=== PATIENT | female | born 1985 | race Caucasian/White ===

== ENCOUNTER 2017-11-01 16:12 | Inpatient (IN) | END 2017-11-05 14:57 | disposition home or self-care (01) | DRG 775 ==

== ENCOUNTER 2018-11-30 17:21 | Outpatient (CLI) | payer OTHER ==
--- NOTE | 2018-11-30 18:03 | PN ---
Triage Information Date/Time Reason for visit: Abd/pelvic pain Weeks of Gestation 33-year-old 3 para 2 at 34 weeks of gestation with estimated date of delivery January 07, 2019 She presents with chief complaint of pelvic pressure Patient reports positive movement, denies uterine contractions, denies vaginal bleeding or leaking fluid /Para 3 para 2 Diabetes: none Hypertention: none Objective Heart Rate: 140's Heart Rate Comments heart rate tracing category 1 Contractions: None Results/Medications Imaging Results PROCEDURE: Biophysical profile. CLINICAL INDICATION: Pelvic pain. TECHNIQUE: Multiple sonographic images of the pelvis were obtained with transabdominal technique. Endovaginal evaluation of the cervix was also performed. COMPARISON: No prior studies are available for comparison. FINDINGS: There is a single living intrauterine gestation with the fetus in a vertex position. The placenta is anterior in location, grade 1 to 2. heart tones of 141 beats per minute are identified. There is normal amniotic fluid volume with an ELLIE of 13.4 cm. The cervix is closed measuring 4.2 cm. breathing movements = 2 Gross body movements = 2 tone = 2 Qualitative AFV = 2 IMPRESSION: Biophysical profile 8 out of 8. .Neel Gongora MD, MD Date Time Electronically viewed and signed by .Neel Gongora MD, on 11/30/2018 18:18 .T/ CC: ILSA SUTHERLAND [id number] Disposition: Discharge Assessment/Plan Patient instructed to increase p.o. hydration Labor precautions were given kick count instructions were given Patient instructed to follow-up with her own [employer]IV[employer] CLERK in 1 to 2 days RAQUEL NEWELL MD November 30, 2018 18:02
--- NOTE | 2018-11-30 18:56 | TRIAGE ---
OB Triage Datetime Report Generated by CPN: 11/30/2018 18:55 Datetime: 11/30/2018 18:53 Stage of : OB Triage Maternal Assessment Level of Consciousness: Fully Conscious DTR's/Clonus: DTRs 1+ Headache: Denies Nausea/Vomiting: Denies RUQ Epigastric Pain: Denies Labor Evaluation Frequency: NONE Monitor Mode: External Resting Tone [place]: Relaxed Heart Rate FHR Baseline Rate: 145 Monitor Mode: External US Variability: Moderate 6-25 bpm Accelerations: 15X15 Decelerations: None Category: Category I Pain Assessment Pain Scale: 4 Pain Presence: Constant Pain Type: Ache Pain Location: Perineum Pain Goal: 3 Vaginal Exam Membrane Status: Intact Datetime: 11/30/2018 18:15 Maternal Assessment Level of Consciousness: Fully Conscious DTR's/Clonus: DTRs 1+ Headache: Denies Blurred Vision: No Nausea/Vomiting: Denies RUQ Epigastric Pain: Denies Facial Edema: None Labor Evaluation Frequency: NONE Monitor Mode: External Resting Tone [place]: Relaxed Heart Rate FHR Baseline Rate: 145 Monitor Mode: External US Variability: Moderate 6-25 bpm Accelerations: 15X15 Decelerations: None Category: Category I Pain Assessment Pain Scale: 4 Pain Presence: Constant Pain Type: Ache Pain Location: Perineum Pain Goal: 3 Vaginal Exam Membrane Status: Intact Datetime: 11/30/2018 17:24 Assessment Type: Triage Maternal Assessment Level of Consciousness: Fully Conscious DTR's/Clonus: DTRs 2+; No Clonus Headache: Denies Blurred Vision: No Respiratory Effort: Unlabored; Regular Rhythm; Equal Expansion Breath Sounds, Left: Clear and Equal Breath Sounds, Right: Clear and Equal Nausea/Vomiting: Denies RUQ Epigastric Pain: Denies Lower Extremities Edema: None Degree: None Upper Extremities Edema: None Degree: None Facial Edema: None Fall Risk Assessment History of Falling: (0) No Secondary Diagnosis: (0) No Ambulatory Aid: (0) Bedrest/Nurse Assist IV Therapy: (0) No Gait: (0) Normal/Bedrest/Immobile Mental Status: (0) Oriented to Own Ability Fall Score: 0 Fall Risk Score Definition: No Risk: No action required Datetime: 11/30/2018 17:20 Time of Arrival: 11/30/2018 13:20 EGA: 34.0 Arrived By: Ambulatory Chief Complaint: PT CAME IN C/O PELVIC PAIN AND VAGINAL PRESSURE SINCE 1 WEEK AGO Movement: Present Contractions: Denies/Absent Rupture of Membranes: Denies Vaginal Discharge: Denies Recent Sexual Intercouse: Denies Abdominal Trauma: Not Applicable Additional Patient Complaints: NONE Time Provider Notified: 11/30/2018 17:24 Provider Notified: HANNAH Initial Plan: MONITOR, NST, BPP, CX LENGHT
== END 2018-11-30 18:50 | disposition home or self-care (01) ==
LOC: OBT 17:21 → L-D 17:23 → OBT 18:50
PROVIDERS: ATTEND Obstetrics & Gynecology
DX: O26.893 Other specified pregnancy related conditions, third trimester (principal); R10.2 Pelvic and perineal pain; Z3A.34 34 weeks gestation of pregnancy
CPT/HCPCS: 76817; 76818; Z7500; G0463

== ENCOUNTER 2018-12-29 15:02 | Outpatient (CLI) | payer OTHER ==
[~2018-12-29] VITALS: Ht 154.9 cm; Wt 79.1 kg
[2018-12-29 16:25] VITALS: Ht 154.9 cm; Wt 79.1 kg
[2018-12-29 16:26] VITALS: BP 93/53; PULSE 82; RESP 18
[2018-12-29] MEDS ORDERED: PNV11TAB PO (16:28)
--- NOTE | 2018-12-29 17:26 | PN ---
Triage Information Date/Time Reason for visit: GDM for NST BPP Weeks of Gestation 37+ /Para n/a Diabetes: none, gestational Hypertention: none Objective Vital Signs Date Temp Pulse Resp B/P (MAP) Pulse Ox O2 O2 Flow FiO2 Time Delivery Rate 12/29/18 98.0 82 18 93/53 (66) 16:26 Heart Rate: 140's Contractions: None Results/Medications Results 24 hrs Laboratory Tests Test 12/29/18 17:12 Bedside Glucose 88 Disposition: Discharge Assessment/Plan BP 04/29 Precautions discussed Questions answered Follow up with provider SAMUEL ROSE M.D. Dec 29, 2018 17:26
--- NOTE | 2018-12-29 17:36 | TRIAGE ---
OB Triage Datetime Report Generated by CPN: 12/29/2018 17:36 Datetime: 12/29/2018 17:15 Stage of : OB Triage Datetime: 12/29/2018 17:13 Stage of : OB Triage Datetime: 12/29/2018 17:10 Bedside Blood Glucose: 88 Datetime: 12/29/2018 16:21 Stage of : OB Triage Assessment Type: Triage Maternal Assessment Level of Consciousness: Keenly Alert, Responsive DTR's/Clonus: DTRs 2+; No Clonus Headache: Denies Blurred Vision: No Respiratory Effort: Unlabored; Regular Rhythm; Equal Expansion Breath Sounds, Left: Clear and Equal Breath Sounds, Right: Clear and Equal Nausea/Vomiting: Denies RUQ Epigastric Pain: Denies Facial Edema: None Temperature Route: Axillary Fall Risk Assessment History of Falling: (0) No Secondary Diagnosis: (0) No Ambulatory Aid: (0) Bedrest/Nurse Assist IV Therapy: (0) No Gait: (0) Normal/Bedrest/Immobile Mental Status: (0) Oriented to Own Ability Fall Score: 0 Fall Risk Score Definition: No Risk: No action required Labor Evaluation Frequency: 0 Monitor Mode: External Pattern: Normal: <= 5 Contractions in 10 Minutes Resting Tone [place]: Relaxed Heart Rate FHR Baseline Rate: 140 Monitor Mode: External US Variability: Moderate 6-25 bpm Accelerations: 10X10 Decelerations: None Category: Category I Pain Assessment Pain Scale: 0 Pain Presence: None/Denies Pain Type: N/A Pain Goal: 3 Pain Relief Measures: Comfort Measures Datetime: 12/29/2018 15:55 Time of Arrival: 12/29/2018 14:53 EGA: 37.2 Arrived By: Ambulatory Arrived From: Office Chief Complaint: REFERRED FROM OFFICE FOR GDM, BPP, EFW, DENIES LEAKING, BLEEDING, OR UC'S Movement: Present Contractions: Denies/Absent Rupture of Membranes: Denies Vaginal Discharge: Denies Recent Sexual Intercouse: Denies Abdominal Trauma: Not Applicable Time Provider Notified: 12/29/2018 17:13 Provider Notified: hadadian Initial Plan: MONITOR, BPP, EFW Datetime: 11/30/2018 17:24 Fall Score: 0 Fall Risk Score Definition: No Risk: No action required Datetime: 11/30/2018 17:20 EGA: 33.1
== END 2018-12-29 17:26 | disposition home or self-care (01) ==
LOC: OBT 15:02 → L-D 15:03 → OBT 17:26
PROVIDERS: ATTEND Obstetrics & Gynecology
DX: O24.419 Gestational diabetes mellitus in pregnancy, unspecified control (principal); O36.8330 Maternal care for abnormalities of the fetal heart rate or rhythm, third trimester, not applicable or unspecified; Z3A.37 37 weeks gestation of pregnancy
CPT/HCPCS: 76815; 76818; 82962; Z7500; G0463

== ENCOUNTER 2019-01-01 11:31 | Outpatient (CLI) | payer OTHER ==
[~2019-01-01] VITALS: Ht 154.9 cm; Wt 80.1 kg
[~2019-01-01 11:31] MED LIST: PNV11TAB PO
[2019-01-01 11:45] VITALS: Ht 154.9 cm; Wt 80.1 kg
[2019-01-01 11:46] VITALS: BP 109/67; PULSE 88; RESP 18
--- NOTE | 2019-01-01 17:21 | PN ---
Triage Information Date/Time Reason for visit: biwkly antepartum test for GDM Weeks of Gestation 37w5d /Para Diabetes: gestational Diabetes management: diet controlled Hypertention: none Objective Vital Signs Date Temp Pulse Resp B/P (MAP) Pulse Ox O2 O2 Flow FiO2 Time Delivery Rate 01/01/19 98.1 88 18 109/67 11:46 (81) Heart Rate: 140's Contractions: None Exam random B.S 123 ( ihr ago had meal)) Results/Medications Results 24 hrs Laboratory Tests Test 01/01/19 11:39 Bedside Glucose 123 Imaging Results BPP 8/8 ELLIE 8.4 Disposition: Discharge Assessment/Plan A IUP 37w5d borderline oligohydramnios P RTH in 3days for biwkly antepartum test NADIA PETERSON MD Jan 01, 2019 17:21
== END 2019-01-01 14:20 | disposition home or self-care (01) ==
LOC: OBT 11:31 → L-D 11:32 → OBT 14:20
PROVIDERS: ATTEND Obstetrics & Gynecology
DX: O24.419 Gestational diabetes mellitus in pregnancy, unspecified control (principal); O41.03X0 Oligohydramnios, third trimester, not applicable or unspecified; Z3A.37 37 weeks gestation of pregnancy
CPT/HCPCS: 76818; 82962; Z7500; G0463

== ENCOUNTER 2019-01-04 16:25 | Inpatient (IN) | payer OTHER ==
[~2019-01-04] VITALS: Ht 154.9 cm; Wt 79.4 kg
[2019-01-04 16:37] VITALS: Ht 154.9 cm; Wt 79.4 kg
--- NOTE | 2019-01-04 17:17 | HP ---
Date/Time of Note Date/Time of Note DATE: 01/04/19 TIME: 17:13 OB - History Hx of Present Free Text/Dictation 33-year-old 3 para 2 at 38 weeks and 1 day gestation with estimated date of delivery January 17, 2019 Patient is GDM A1 and presents for NST and BPP Patient reports positive movement, denies vaginal bleeding and leaking fluid, denies uterine contractions GBS status is negative Estimated Due Date: Jan 17, 2019 : 3 Para: 2 Care: Good Care Obstetrical Complications: Gestational Diabetes (GDM A1) Medical Complications: None Past Family/Social History * Past Medical, Surgical, Family and Obstetric Histories reviewed from chart. OB Admission Exam Physical Exam HEENT: WNL Heart: Rhythm Normal Lungs: Clear, Equal Abdomen: WNL Extremities: Normal Reflexes: Normal Cervical Dilatation: None Membranes: Intact Heart Rate: 140's Accelerations: Accelerations Present Decelerations: No Decelerations Varibility: Moderate Contractions on Admission: None Last 72 hours Lab Results PROCEDURE: US Obstetrical , limited CLINICAL INDICATION: Biophysical profile for well being, gestational diabetes. TECHNIQUE: Multiple real-time images were acquired of the patient's maternal abdomen utilizing a curved array transducer. COMPARISON: 01/01/2019 FINDINGS: There is a single live intrauterine fetus in a cephalic presentation. The placenta is implanted anteriorly and is grade II. The amniotic fluid index measures 9.4 cm. The heart rate is 143 beats per minute. Biophysical profile: Tone: 2 breathin Gross body movement: 2 Amniotic fluid: 2 Biophysical profile score: 8/8 IMPRESSION: 1. Single live intrauterine fetus, cephalic presentation, unchanged. The heart rate is 143 bpm. 2. Anterior placenta, grade 2. 3. Amniotic fluid index 9.4 cm. 4. Biophysical profile score: 8/8, unchanged. Physician Ferny Date Time Electronically viewed and signed by Physician Ferny on 01/04/2019 17:20 RH/ CC: RAQUEL NEWELL MD [phone] OB Assessment/Plan Reason for admission: other ( heart rate tracing category 2) Other plan: Admit to antepartum Continuous monitoring of heart rate tracing Copies To: CC: ILSA SUTHERLAND ; RAQUEL NEWELL MD Jan 04, 2019 17:17
[2019-01-04] MEDS: LACTATED RINGER'S 1,000 ML IV SCH ×2 (18:54→23:43)
[2019-01-04] MEDS ORDERED: ACETAMINOPHEN 325 MG TAB PO PRN (23:30)
[2019-01-04] MEDS ORDERED: DIPHENHYDRAMINE 25 MG CAP PO SCH (23:30)
--- NOTE | 2019-01-05 09:36 | PREAC ---
Date/Time of Note Date/Time of Note DATE: 01/05/19 TIME: 09:35 Anesthesia Eval and Record Evaluation Time Pre-Procedure Interview DATE: 01/05/19 TIME: 09:35 Age 33 Sex female NPO: 8 hrs Preoperative diagnosis intrauterine Planned procedure labor epidural Past Medical History Past Medical History: Includes : : (3), Para: (2), Gestational diabetes Surgery & Anesthesia Issues No known issue Meds Anticoagulation: No Beta Speedy within 24 hr: No Reason Beta Speedy not given: Pt. not on B-Speedy Reported Medications [id number] ( 19) 1 Each Tablet, 1 TAB PO DAILY, TAB 12/29/18 Current Medications Lactated Ringer's 1,000 ml @ 125 mls/hr Q8H IV Last administered on 01/04/19at 23:43; Admin Dose 125 MLS/HR; Start 01/04/19 at 18:38 Acetaminophen (Tylenol Tab) 650 mg Q6H PRN PO MILD PAIN(1-3)OR ELEVATED TEMP; Start 01/04/19 at 23:30 Diphenhydramine HCl (Benadryl) 25 mg HS PO Last administered on 01/04/19at 23:43; Admin Dose 25 MG; Start 01/04/19 at 23:30 Meds reviewed: Yes Allergies Coded Allergies: No Known Allergy (Unverified , 01/04/19) Allergies Reviewed: Yes Labs/Studies Labs Reviewed: Reviewed by anesthesiologist Result Diagram: 01/04/19 1830 01/04/19 1830 Laboratory Tests 01/04/19 18:30 Blood Bank Test 01/04/19 18:30 Blood Type A POSITIVE Rh Immune Globulin Candidate NO test: N/A Pre-procedure Exam Airway: Adequate mouth opening, Adequate thyromental dist Mallampati: Mallampati II Teeth: Normal Lung: Normal Heart: Normal ASA Physical Status ASA physical status: 2 Emergency: None Planned Anesthetic Neuraxial: Epidural Planned Pain Management Epidural Pre-operative Attestations Prior to commencing anesthesia and surgery, the patient was re-evaluated, there was verification of: *The patient's identity *The results of appropriate recent lab work and preoperative vital signs *The above evaluation not changing prior to induction *Anesthetic plan, risk benefits, alternative and complications discussed with patient/family; questions answered; patient/family understands, accepts and wishes to proceed. TIKI MENDEZ MD Jan 05, 2019 09:36
[2019-01-05] MEDS ORDERED: LIDOCAINE 1% (MPF) 30 ML INJ INJ PRN (10:00)
[2019-01-05] MEDS ORDERED: METHYLERGONOVINE 0.2 MG INJ IM PRN (10:00)
[2019-01-05] MEDS ORDERED: OXYTOCIN 30 UNITS/LR 500 ML IV SCH ×3 (10:00)
[2019-01-05] MEDS ORDERED: BUTORPHANOL 2 MG INJ IV PRN (10:00)
[2019-01-05] MEDS ORDERED: CARBOPROST 250 MCG INJ IM PRN (10:00)
[2019-01-05] MEDS ORDERED: OXYTOCIN 30 UNITS/LR 500 ML IV PRN (10:00)
[2019-01-05] MEDS ORDERED: MISOPROSTOL 200 MCG TAB PR PRN (10:00)
[2019-01-05] MEDS ORDERED: IBUPROFEN 600 MG TAB PO PRN (10:00)
[2019-01-05 13:28] VITALS: BP 105/63; PULSE 65; RESP 18
[2019-01-05] MEDS: LACTATED RINGER'S 1,000 ML IV SCH ×2 (16:02→21:40)
[2019-01-05] MEDS ORDERED: LACTATED RINGER'S 1,000 ML IV PRN (20:35)
[2019-01-05] MEDS ORDERED: DIPHENHYDRAMINE 25 MG CAP PO SCH (21:00)
[2019-01-05] MEDS ORDERED: FENTAnyl 2MCG/ML-ROPIV 0.2% 100 ML ONE (21:24)
[2019-01-05] MEDS ORDERED: FENTAnyl 2MCG/ML-ROPIV 0.2% 100 ML BAG EPI SCH (21:30)
[2019-01-05] MEDS ORDERED: DIPHENHYDRAMINE 50 MG INJ IV PRN (21:30)
[2019-01-05] MEDS ORDERED: NALOXONE (0.4 MG/ML) INJ IV PRN (21:30)
[2019-01-05] MEDS ORDERED: ONDANSETRON 4 MG INJ IV PRN (21:30)
--- NOTE | 2019-01-05 22:18 | PAC ---
Date/Time of Note Date/Time of Note DATE: 01/05/19 TIME: 22:18 Post-Anesthesia Notes Post-Anesthesia Note Last documented vital signs Vital Signs Date Temp Pulse Resp B/P (MAP) Pulse Ox O2 O2 Flow FiO2 Time Delivery Rate 01/05/19 97.4 65 18 105/63 13:28 (77) Activity: WNL Respiratory function: WNL Cardiovascular function: WNL Mental status: Baseline Pain reasonably controlled: Yes Hydration appropriate: Yes Nausea/Vomiting absent: Yes Comments BP: 112/62 HR: 72 RR: 15 SaO2: 100% T: 98 TIKI MENDEZ MD Jan 05, 2019 22:18
--- NOTE | 2019-01-06 02:19 | LDN ---
Date/Time of Note Date/Time of Note DATE: 01/06/19 TIME: 02:15 Delivery Summary 33 years old -0-0-2 with A1 gestational diabetes and single intrauterine at 38 weeks and 3 days with a LINA of 01/17/2019 delivered a viable female over intact perineum. Nose and mouth suctioned. Rest of body delivered. Cord clamp and caught after stopping pulsation. Baby given to the nurse. Placenta delivered intact and spontaneously, there was some clot behind placenta. Patient tolerated procedure well. Time of delivery 01:51 Weight 2975 g - 6 pound 9 ounces 8 at 1 minutes and 9 at 5 minutes EBL 250 Weeks of Gestation 38 weeks and 3 days Placenta Delivered: Spontaneously Meconium: none Episiotomy: No Estimated blood loss: 250 Sponge & Needle done & correct: Yes All needle counts correct: Yes Any foreign bodies felt in the: No Infant Delivery Information Sex Sex: female Apgars 1 Minute: 8 5 Minute: 9 10 Minute: 1 Suctioning Nose & mouth suctioned at ayde: Yes Umbilical Cord Umbilical cord with: 3 Vessels Cord presentations: no nuchal cord Cord Blood was obtained: Yes Mother & Baby Disposition Disposition Mom & Baby to Maternity; Good: Yes ILSA SUTHERLAND Jan 06, 2019 02:18
[2019-01-06 04:15] VITALS: BP 105/60; PULSE 79; RESP 19
[2019-01-06] MEDS: LACTATED RINGER'S 1,000 ML IV* SCH ×2 (04:19→06:06)
[2019-01-06] MEDS ORDERED: DEXTROSE 5%-LR 1,000 ML IV SCH (04:19)
[2019-01-06] MEDS ORDERED: DIPHENHYDRAMINE 50 MG INJ IV PRN (04:30)
[2019-01-06] MEDS ORDERED: MISOPROSTOL 200 MCG TAB PR PRN (04:30)
[2019-01-06] MEDS ORDERED: CARBOPROST 250 MCG INJ IM PRN (04:30)
[2019-01-06] MEDS ORDERED: DIBUCAINE 1% 30 GM OINT TOP PRN (04:30)
[2019-01-06] MEDS ORDERED: SENNA/DOCUSATE NA (8.6MG/50MG) TAB PO PRN (04:30)
[2019-01-06] MEDS ORDERED: OXYTOCIN 30 UNITS/LR 500 ML IV PRN (04:30)
[2019-01-06] MEDS ORDERED: BENZOCAINE 20% 56 ML SPRAY TOP PRN (04:30)
[2019-01-06] MEDS ORDERED: ONDANSETRON 4 MG INJ IV PRN (04:30)
[2019-01-06] MEDS ORDERED: LANOLIN HPA 1 PKT TOP PRN (04:30)
[2019-01-06] MEDS ORDERED: METHYLERGONOVINE 0.2 MG INJ IM PRN (04:30)
[2019-01-06] MEDS ORDERED: WITCH HAZEL/GLYCERIN PAD PR PRN (04:30)
[2019-01-06] MEDS ORDERED: ZOLPIDEM 5 MG TAB PO PRN (04:30)
[2019-01-06] MEDS ORDERED: ACETAMINOPHEN 325 MG TAB PO PRN (04:30)
[2019-01-06] MEDS ORDERED: OXYCODONE/ASPIRIN (4.88/325) TAB PO PRN (04:30)
[2019-01-06] MEDS ORDERED: IBUPROFEN 600 MG TAB ONE (05:54)
[2019-01-06] MEDS: IBUPROFEN 600 MG TAB PO SCH ×3 (06:05→17:53)
[2019-01-06 07:40] VITALS: BP 92/53; PULSE 74; RESP 18
[2019-01-06 12:05] VITALS: BP 100/59; PULSE 62; RESP 16
[2019-01-06 15:35] VITALS: BP 100/51; PULSE 63; RESP 20
--- NOTE | 2019-01-06 15:47 | PN ---
Date/Time of Note Date/Time of Note DATE: 01/06/19 TIME: 15:45 OB Subjective Subjective Subjective PPD# 1 Patient is doing well. She denies nausea, vomiting, shortness of breath, chest pain, headache. She has been ambulating without difficulty, tolerating regular diet. Pain is well controlled on current medications OB Objective Objective Objective VS - Last 72 Hours, by Label Date Temp Pulse Resp B/P (MAP) Pulse Ox O2 O2 Flow FiO2 Time Delivery Rate 01/06/19 98.2 63 20 100/51 Room Air 15:35 (67) 01/06/19 97.7 62 16 100/59 Room Air 12:05 (73) 01/06/19 98.2 74 18 92/53 (66) Room Air 07:40 01/06/19 98.0 79 19 105/60 Room Air 04:15 (75) 01/05/19 97.4 65 18 105/63 13:28 (77) General: AAO X 3, comfortable, NAD, appropriate mood and affect. ABD: +BS. Soft, non-tender. Uterus 2 cm below umbilicus Flank: No CVA tenderness (B/L) LE: Mild edema. No clubbing, cyanosis, thigh or calf tenderness (B/L). Homans 'sign is negative OB Assessment/Plan Other plan: 33-year-old -0-0-3 with the A1 gestational diabetes s/p normal vaginal delivery at 38 weeks and 3 days. PPD#1 - AF, VSS - Baby is doing well, at bed side. She is bonding well - Contraception methods with R/B/A/FR discussed - Continue care - Discharge home tomorrow - Rx and instruction given - Follow up in 2 and 6 weeks at clinic 2. A1 gestational diabetes: Diet and exercise discussed. 75 g 2-hour glucose tolerance test at 6-12 weeks after delivery discussed with patient. She expressed understanding. ILSA SUTHERLAND Jan 06, 2019 15:47
--- NOTE | 2019-01-06 15:48 | DS ---
Date/Time of Note Date/Time of Note DATE: 01/06/19 TIME: 15:47 Obstetrical Discharge Record Final Diagnosis Final Diagnosis: Term delivered Other Final Diagnosis 33-year-old -0-0-3 with the A1 gestational diabetes s/p normal vaginal delivery at 38 weeks and 3 days. PPD#1. course was unremarkable. She is ambulating and tolerating regular diet. She is voiding without difficulty. Pain is controlled on current medication. - AF, VSS - Baby is doing well, at bed side. She is bonding well - Contraception methods with R/B/A/FR discussed - Continue care - Discharge home tomorrow - Rx and instruction given - Follow up in 2 and 6 weeks at clinic 2. A1 gestational diabetes: Diet and exercise discussed. 75 g 2-hour glucose tolerance test at 6-12 weeks after delivery discussed with patient. She expressed understanding. Vaginal Delivery Obstetrical Delivery: Spontaneous Condition on Discharge Physical Assessment Last Vitals: Vital Signs Date Temp Pulse Resp B/P (MAP) Pulse Ox O2 O2 Flow FiO2 Time Delivery Rate 01/06/19 98.2 63 20 100/51 Room Air 15:35 (67) Voiding: Yes Bowel Movement: Yes Breast: Soft, non-tender Fundus: Firm Calf Tenderness: No Patient Condition: Stable ILSA SUTHERLAND Jan 06, 2019 15:48
[2019-01-06 19:50] VITALS: BP 96/46; PULSE 60; RESP 18
[2019-01-07] MEDS: IBUPROFEN 600 MG TAB PO SCH ×3 (00:34→12:47)
[2019-01-07 04:00] VITALS: BP 94/51; PULSE 65; RESP 18
[2019-01-07 08:42] VITALS: BP 114/72; PULSE 62; RESP 14
[2019-01-08] MEDS ORDERED: DIPHTH/TET/ACEL PERTUSS (ADULT) 0.5 ML VIAL IM* ONE (09:00)
[2019-01-08] MEDS ORDERED: MEASLES,MUMPS,RUBELLA VACCINE INJ SC* ONE (09:00)
--- NOTE | 2019-01-08 15:19 | DELSUM ---
Delivery Summary A-C Datetime Report Generated by CPN: 01/08/2019 15:19 DELIVERY PERSONNEL Arts Education Teacher: Dries, Aashish MATERNAL INFORMATION Delivery Anesthesia: Epidural Medications in Delivery: LR WITH 30 UNITS PITOCIN. Delivery QBL (ml): 200 Placenta Cultured: No Maternal Complications: Other Other Maternal Complications: GDM. LABOR SUMMARY EDC: 01/17/2019 00:00 No. Babies in Womb: 1 Attempted: No Labor Anesthesia: Epidural LABOR INFORMATION Reason for Induction: Other Reason for Induction- Other: Concerning variable decels Onset of Labor: 01/05/2019 21:54 Complete Dilatation: 01/06/2019 01:43 Oxytocin: Induction Group B Beta Strep: Negative Antibiotics # of Doses: 0 Steroids Given: None Reason Steroids Not Administered: Not Applicable MEMBRANES Membranes Rupture Method: Artificial Rupture of Membranes: 01/06/2019 01:49 Length of Rupture (hr): 0.03 Amniotic Fluid Color: Clear Amniotic Fluid Amount: Large Amniotic Fluid Odor: None STAGES OF LABOR Stage 1 hr: 3 Stage 1 min: 49 Stage 2 hr: 0 Stage 2 min: 8 Stage 3 hr: 0 Stage 3 min: 2 Total Time in Labor hr: 3 Total Time in Labor min: 59 VAGINAL DELIVERY Episiotomy: None Laceration Extension: N/A Laceration Type: None Initial Vag Sponge Count: 10 Final Vag Sponge Count: 9 Initial Vag Sharps Count: 1 Final Vag Sharps Count: 1 Sponge Count Correct: No; Vaginal Sweep Performed Sharps Count Correct: No Count Comment: MD ORDERED PELVIC XRAY. BABY A INFORMATION Delivery Date/Time: 01/06/2019 01:51 Method of Delivery: Vaginal Born in Route : No : N/A Forceps: N/A Vacuum Extraction: N/A Shoulder Dystocia : N/A SHOULDER DYSTOCIA BABY A Delivery Date/Time: 01/06/2019 01:51 PRESENTATION/POSITION BABY A Presentation: Cephalic Cephalic Presentation: Vertex Vertex Position: Left Occipital Anterior Breech Presentation: N/A PLACENTA INFORMATION BABY A Placenta Delivery Time : 01/06/2019 01:53 Placenta Method of Delivery: Spontaneous Placenta Status: Delivered SCORES BABY A Heart Rate 1 min: >100 bpm Resp Effort 1 min: Good Cry Reflex Irritability 1 min: Cough/Sneeze/Pulls Away Muscle Tone 1 min: Active Motion Color 1 min: Blue/Pale Resuscitation Effort 1 min: Tactile Stimulation; Oxygen SCORE 1 MIN: 8 Heart Rate 5 min: >100 bpm Resp Effort 5 min: Good Cry Reflex Irritability 5 min: Cough/Sneeze/Pulls Away Muscle Tone 5 min: Active Motion Color 5 min: Body [place], Extremit Blue Resuscitation Effort 5 min: Tactile Stimulation; Oxygen SCORE 5 MIN: 9 INFANT INFORMATION BABY A Gestational Age at Delivery: 38.3 Gestational Status: Early Term- 37- 38.6 Weeks Infant Outcome : Liveborn Condition : Stable Sex: Female IDENTIFICATION/MEDS BABY A ID Band Number: [id number] ID Band Location: Right Leg; Left Arm Sensor Applied: Yes Sensor Number: [id number] Sensor Location : Cord Clamp Vitamin K Given : Not Given Erythromycin Given: Not Given WEIGHT/LENGTH BABY A Birthweight (gm): 2975 Weight (lb): 6 Infant Weight (oz): 9 Infant Length (in): 19.00 Infant Length (cm): 48.26 CORD INFORMATION BABY A No. Cord Vessels: 3 Nuchal Cord : N/A Cord Blood Taken: Yes Infant Suction: Mouth; Nose ASSESSMENT BABY A Complications: Multiple Late Decels Physical Findings at Delivery: Within Normal Limits Infant Respirations: Appears Normal Structural Fitter/ALS Called : Yes Care By: SUSAN Santiago RN Transferred To: Remains with Mother
== END 2019-01-07 14:50 | disposition home or self-care (01) | DRG 807 ==
LOC: OBT 16:25 → L-D 16:26 → OBT 17:00 → L-D 17:00 → PP1 01-06 04:08
PROVIDERS: ADMIT Obstetrics & Gynecology; ATTEND Obstetrics & Gynecology
PROC: 10E0XZZ Delivery of Products of Conception, External Approach (ICD-10-PCS; principal; 2019-01-06)
DX: O24.419 Gestational diabetes mellitus in pregnancy, unspecified control (principal); Z37.0 Single live birth; Z3A.38 38 weeks gestation of pregnancy
CPT/HCPCS: 62322; 72170; 76815; 76818; 82947; 82962; 85025; 85610; 85730; 86592; 86900; 86901; 87340; 99464; G0463; J2590; J3010; J7120; J7121